=== PATIENT | male | born 1955 | race Caucasian/White ===

== ENCOUNTER 2016-07-26 10:15 | Day surgery (SDC) | payer MEDICAID ==
[~2016-07-26] VITALS: Ht 185.4 cm; Wt 101.2 kg
[2016-07-26 11:48] LABS: BASOPHILS 0.4 % (0.0-2.0); EOSINOPHILS 1.6 % (0-7); HEMATOCRIT 41.8 % (42.0-54.0); HEMOGLOBIN 14.4 g/dL (13.5-17.5); IMMATURE GRANULOCYTES 0.2 % (0-5); LYMPHOCYTES 29.8 % (15-50); MCH 31.2 pg (26.0-34.0); MCHC 34.4 g/dL (31.0-37.0); MCV 90.5 fL (80.0-100.0); MEAN PLATELET VOLUME 9.6 fL (7.4-10.4); PLATELET COUNT 213 10x3/uL (130-400); RBC 4.62 10x6/uL (4.20-6.10); RDW 12.3 % (11.5-14.5); WBC 5.7 10x3/uL (4.8-10.8)
[2016-07-26 11:58] LABS: ANION GAP 11.7 mmol/L (8-16); CALCIUM 9.2 mg/dL (8.5-10.1); CARBON DIOXIDE 26.6 mmol/L (21.0-32.0); CREATININE - SERUM 1.5 mg/dL (0.6-1.3); POTASSIUM - SERUM 4.3 mmol/L (3.5-5.1)
[2016-07-26] MEDS ORDERED: PRAVASTATIN SOD10 MG PO (12:40)
[2016-07-26] MEDS ORDERED: COZAAR100 MG PO (12:40)
[2016-07-26 12:53] VITALS: BP 107/69; Ht 185.4 cm; Wt 101.2 kg
[2016-07-26] MEDS ORDERED: HYDROCODONE-APA1 TAB PO (14:42)
--- NOTE | 2016-07-26 17:25 | NUR ---
1630--PACKING AND DRESSING CHANGE TEACH DONE, PT'S STATES SHE IS UNCOMFORTABLE DOING DRESSING CHANGE AND REQUESTS HOME HEALTH. CHAPARRO MUNIZ 1632--DR REYNA PAGED. CHAPARRO MUNIZ 1640--DR REYNA RETURNS PAGE, REPORT GIVEN OF PT'S REQUEST FOR HOME HEALTH. ORDER RECIEVED. CHAPARRO MUNIZ 1649--CASE MANAGEMENT CALLED FOR CONSULT. CHAPARRO MUNIZ 1700--LATOYA WITH HOME HEALTH IN ROOM SPEAKING WITH PT AND FAMILY ABOUT HOME HEALTH, PT IS USING [employer]. CHAPARRO MUNIZ 7297--IV DC'D. PT COMPLAINS OF PAIN RATES PAIN /10. CHAPARRO MUNIZ
--- NOTE | 2016-07-26 19:03 | NUR ---
173--NORCO 10/325MG GIVEN PO FOR PAIN. CHAPARRO MUNIZ 5926--DISCHARGE INSTRUCTIONS BRYN PT VERBALIZES UNDERSTANDING. PT OFF UNIT VIA WC. CHAPARRO MUNIZ
--- NOTE | 2016-08-18 13:21 | OP ---
PATIENT NAME: POP FELDER MEDICAL RECORD: [id number] :57 LOCATION:D.OPS ADMISSION DATE: SURGEON: GENEVA REYNA MD DATE OF OPERATION: 07/26/2016 PREOPERATIVE DIAGNOSES: 1. Left scrotal abscess. 2. Hypertension. 3. Hypercholesterolemia. POSTOPERATIVE DIAGNOSES: 1. Left scrotal abscess. 2. Hypertension. 3. Hypercholesterolemia. PROCEDURE: I&D of the left scrotum. SURGEON: Geneva Reyna MD. REPORT OF PROCEDURE: The patient's left scrotal region was prepped and draped in sterile fashion. A skin incision was made overlying an area of fluctuance. There was a spillage of purulence and cultures were taken times 2. The wound was opened up and probed and any necrotic tissue was removed. This did not extend down into the hemiscrotum, but just superficial. We irrigated out the wound with normal saline mixed with hydrogen peroxide. We then packed the wound with quarter inch packing strips and covered it with 4 x 4s. COMPLICATIONS: None. CONDITION: Stable. ANESTHESIA: General endotracheal. BLOOD LOSS: Minimal. TRANSINT:[id number] Voice Confirmation ID: [id number] DOCUMENT ID: [id number] GENEVA REYNA MD at 1321 CC: PASTORA JOSÉ MD [id number] DICTATION DATE: 07/26/16 1441 RIG OPERATOR: 07/27/16 0157 [facility] 07/26/[address] [id number]
== END 2016-07-26 17:45 | disposition home or self-care (01) ==
LOC: D.OPS 10:15
PROVIDERS: Anesthesiology; Surgery
DX: N49.2 Inflammatory disorders of scrotum (principal); I10 Essential (primary) hypertension; E78.00 Pure hypercholesterolemia, unspecified; K21.9 Gastro-esophageal reflux disease without esophagitis